=== PATIENT | female | born 1965 | race Caucasian/White ===

== ENCOUNTER 2024-08-10 09:31 | Emergency (ER) | payer MEDICAID, SELFPAY ==
[2024-08-10 09:44] VITALS: BP 145/96; BP 155/105; PULSE 99; RESP 19; TEMP 37; O2SAT 97; BMI 25.7
--- NOTE | 2024-08-10 09:52 | EKG_ITS ---
[facility] Test Date: 2024-08-10 Pat Name: BETSY HERNANDEZ Department: Room: - Gender: Female [employer]: : 1965 Requested By: Sanjana White Order Number: [id number] Reading MD: Sanjana White Measurements Intervals [place] Rate: 100 P: 29 CO: 120 QRS: 30 QRSD: 96 T: 36 QT: 335 QTc: 433 Interpretive Statements SINUS TACHYCARDIA POSSIBLE LEFT ATRIAL ENLARGEMENT [-0.1mV P-WAVE IN V1/V2] NONSPECIFIC ST & T-WAVE ABNORMALITY ABNORMAL RHYTHM ECG No previous ECG available for comparison /[id number].pdf
--- NOTE | 2024-08-10 09:52 | XR_ITS ---
Examination: PA lateral chest 2 views Technique: Upright PA lateral chest 2 views Date and time: August 10, 2024, 1003 hrs. Indications: Shortness of breath chest pain beginning 2 days ago. Findings: Normal heart size. Lungs are clear. Moderate osteopenia. Impression: No active disease.
--- NOTE | 2024-08-10 09:52 | PD.EDRME ---
Rapid Medical Screening Exam E Arrival date/time: 08/10/24 09:31 This is a 59-year-old female that comes into the emergency room with complaints of worst headache she has ever had for the past 5 days. Patient also has complaints of chest pressure and shortness of breath. Patient states she feels dizzy and weak. Patient states she never goes to the emergency room and does not see a primary provider. Patient does not take any medications regularly. Patient denies alcohol and drug use. Patient appears very anxious in triage. Patient reports that she has had some lower abdominal pain on the left side on and off but denies urinary symptoms. Patient denies nausea vomiting diarrhea. I have greeted and performed a focused initial assessment of this patient. Initial appropriate labs ordered at this time. A comprehensive ED assessment and evaluation of the patient and analysis of all test and completion of medical decision making process will be conducted by additional ED provider. Chief Complaint: Headache Time Seen by Provider: 08/10/24 09:39 Vital signs: Vital Signs Temperature 98.6 F 08/10/24 09:44 Pulse Rate 99 08/10/24 09:44 Respiratory Rate 19 08/10/24 09:44 Blood Pressure 145/96 H 08/10/24 09:44 Pulse Oximetry (%) 97 08/10/24 09:44 Oxygen Delivery Method Room Air 08/10/24 09:44
--- NOTE | 2024-08-10 09:53 | XR_ITS ---
Examination: CT brain head without contrast. 2-D sagittal coronal reconstructions Date and time of exam:August 10, 2024, 10:10 AM Indications: Headaches 4 days CTDI: vol (mGy):47.9 DLP: (mGycm):1003 Technique: Multiple CT axial sections of the brain have been obtained, 5 mm slice thickness. Contrast has not been administered. 2-D sagittal, coronal reconstructions have been obtained Low dose protocols were performed. One or more of the following dose reduction techniques were used; automated exposure control, adjustment of the mA and/or KV according to patient size, use of iterative reconstruction technique. Findings: No significant ventricular enlargement. Intra-axial or extra-axial hemorrhage density is not seen. No mass effect or midline shift Basal cisterns are not remarkable. Fourth ventricle is midline. Cranial vault intact. Impression: Negative for acute hemorrhage, mass effect or midline shift Advise clinical correlation follow-up accordingly
[2024-08-10 10:25] LABS: Basophils # (Auto) 0.1 Thou/mm3 (0.0-0.2); Basophils % (Auto) 1 % (0-2.5); Eosinophils % (Auto) 0 % (0-10); Hematocrit 38.4 % (36.0-46.0); Hemoglobin 13.7 g/dL (12.0-16.0); Immature Granulocytes % (Auto) 0 % (0-0); Immature Granulocytes Auto 0.03 Thou/mm3 (0.00-0.00); Lymphocytes # (Auto) 1.6 Thou/mm3 (1.0-4.8); Lymphocytes % (Auto) 14 % (10-50); Mean Corpuscular HGB Conc 35.7 g/dl (31.0-37.0); Mean Corpuscular Hemoglobin 31.6 pg (25.0-35.0); Mean Corpuscular Volume 89 fL (80-100); Monocytes # (Auto) 1.1 Thou/mm3 (0.0-0.8); Monocytes % (Auto) 10 % (0-12); Neutrophils # (Auto) 8.3 Thou/mm3 (1.8-7.7); Neutrophils % (Auto) 75 % (37-80); Nucleated Red Blood Cell % 0 /100 WBC (0); Platelet Count 247 Thou/mm3 (140-440); RDW Standard Deviation 43.1 fL (36.4-46.3); Red Blood Count 4.34 Miln/mm3 (4.00-5.20)
[2024-08-10 10:44] LABS: B-Type Natriuretic Peptide 61 pg/mL (0-100)
[2024-08-10 10:46] LABS: Alanine Aminotransferase 41 U/L (10-49); Albumin, Serum 4.4 gm/dL (3.5-5.0); Albumin/Globulin Ratio 1.6 (1.2-2.2); Alkaline Phosphatase 127 U/L (46-116); Anion Gap 10 (7-16); Aspartate Amino Transferase 27 U/L (0-34); BUN/Creatinine Ratio 10 Ratio (12-20); Bilirubin,Total 1.8 mg/dL (0.3-1.2); Blood Urea Nitrogen 10 mg/dL (9-23); Calcium 8.6 mg/dL (8.3-10.6); Calcium (Corrected) 8.6 mg/dL (8.5-10.1); Carbon Dioxide 25.5 mMol/L (20.0-31.0); Chloride 100 mMol/L (98-107); Estimated Creatinine Clearance 64.1 mL/min (>60); Globulin 2.8 gm/dL (2.3-3.5); Glucose 118 mg/dL (74-106); Osmolality,Calculated 270 (275-295); Potassium 3.2 mMol/L (3.4-5.1); Sodium 135 mMol/L (136-145); Total Protein 7.2 gm/dL (5.7-8.2); Troponin I < 0.002 ng/mL (0.0-0.045); eGFR > 60 See Note
--- NOTE | 2024-08-10 12:44 | PD.EDHA ---
ED Headache RME/HPI General Chief Complaint: Headache Stated Complaint: SHARP PAINS TO HEAD , CX PAIN/PRESSURE Time Seen by Provider: 08/10/24 09:39 Arrival date/time: 08/10/24 09:31 RME / HPI RME / HPI Narrative: 59-year-old female that comes into the emergency room with complaints of worst headache she has ever had for the past 5 days. Patient also has complaints of chest pressure and shortness of breath. Patient states she feels dizzy and weak. Patient states she never goes to the emergency room and does not see a primary provider. Patient does not take any medications regularly. Patient denies alcohol and drug use. Patient appears very anxious in triage. Patient reports that she has had some lower abdominal pain on the left side on and off but denies urinary symptoms. Patient denies nausea vomiting diarrhea. Denies any head trauma or fall. No medication was taken prior to ER visit. Patient is ambulatory. Related Data Previous Rx's ?Medication ?Instructions ?Recorded rizatriptan 10 mg disintegrating 10 mg PO Q2H PRN migraine headache 08/10/24 tablet (Maxalt-INFECTION PREVENTION COORDINATOR) #20 tabs Allergies Allergy/AdvReac Type Severity Reaction Status Date / Time No Known Allergies Allergy Verified 08/10/24 09:35 Review of Systems Review of Systems Narrative Review of Systems: Review of system reviewed and within normal limits except mentioned in HPI ED Exam Narrative Physical exam: VITAL SIGNS: Reviewed. GENERAL APPEARANCE: Alert and interactive, follows commands, no acute distress, HEAD AND FACE: Non-traumatic. ENT: PERRL, pink conjunctivitis, eyelid no trauma, Mucous membrane moist. NECK: Supple, nontender, no nuchal rigidity. CHEST: No tenderness, no crepitus, no paradoxical movement, no retractions. LUNGS: Clear, well ventilated, symmetric, no rales, no wheezing, no ronchi, no stridor, good breath sounds bilaterally. HEART: Regular rate, regular rhythm, no murmur, no gallops. ABDOMEN: Soft, positive bowel sounds, nondistended, no guarding, nontender, no rebound, no masses, RECTAL: Deferred. GENITAL: Deferred. NEUROLOGICAL: Gross motor function intact sensory function intact, Appropriate for age. MUSCULOSKELETAL: low back nontender, full range of motion. EXTREMITIES: Nontender, full range of motion. SKIN: Color pink, dry, no rash, no lacerations, no abrasions, no contusions. LYMPHATICS: Deferred. Course Quality Measures none Orders Category Date Time Status EKG (ED ONLY) *Do not use* NOW Care 08/10/24 09:[address] head/brain wo con Stat Exams 08/10/24 09:53 Completed EKG (ED Only) Stat Exams 08/10/24 09:52 Draft XR chest 2V Stat Exams 08/10/24 09:52 Completed BNP [B-Type Natriuretic Peptide] Stat Lab 08/10/24 10:18 Completed CBC Stat Lab 08/10/24 10:16 Completed Comprehensive Metabolic Panel Stat Lab 08/10/24 10:16 Completed Drug Screen,Urine Stat Lab 08/10/24 09:53 Ordered Troponin I Stat Lab 08/10/24 10:16 Completed Urinalysis, C/S if Indicated Stat Lab 08/10/24 09:54 Ordered DiphenhydrAMINE [Benadryl] Med 08/10/24 12:43 Discontinued 50 mg PO X1 ONE Ketorolac Inj [Toradol Inj] Med 08/10/24 12:43 Discontinued 30 mg IM X1 ONE Metoclopramide [Reglan] Med 08/10/24 12:43 Discontinued 10 mg PO X1 ONE Potassium Chloride [K-Dur] Med 08/10/24 13:12 Discontinued 40 meq PO X1 ONE Vital Signs Vital signs: Vital Signs Temperature 98.6 F 08/10/24 09:44 Pulse Rate 99 08/10/24 09:44 Respiratory Rate 19 08/10/24 09:44 Blood Pressure 145/96 H 08/10/24 09:44 Pulse Oximetry (%) 97 08/10/24 09:44 Oxygen Delivery Method Room Air 08/10/24 09:44 Headache MDM Narrative MDM Narrative:: 59-year-old female that comes into the emergency room with complaints of worst headache she has ever had for the past 5 days. Patient also has complaints of chest pressure and shortness of breath. Patient states she feels dizzy and weak. Patient states she never goes to the emergency room and does not see a primary provider. Patient does not take any medications regularly. Patient denies alcohol and drug use. Patient appears very anxious in triage. Patient reports that she has had some lower abdominal pain on the left side on and off but denies urinary symptoms. Patient denies nausea vomiting diarrhea. Denies any head trauma or fall. No medication was taken prior to ER visit. Patient is ambulatory Patient's workup today all came back normal including CT scan of the head except for potassium 3.2. Patient was given Toradol, Benadryl and Reglan with complete resolution of headache. I witnessed her walking without any difficulty. Patient data External records reviewed:: None Clinical information provided by:: patient Social determinants that could affect healthcare access:: none Patient has the following chronic illnesses:: None How is presenting disease/condition affected by chronic disease/condition?: no chronic disease Evaluation data The following diagnostics were reviewed and interpreted by me:: radiology exam(s) Lab and/or radiology exams considered but not ordered:: None Interpretation Summary: See results in MDM Medications / Prescriptions Medications or Prescriptions considered but not ordered:: None Medication administrations:: Medication Administration History Discontinued Medications Diphenhydramine HCl (Diphenhydramine 25 Mg Capsule) 50 mg PO X1 ONE Stop: 08/10/24 12:44 Last Admin: 08/10/24 13:40 Dose: 50 mg Documented By: Ketorolac Tromethamine (Ketorolac Inj 60 Mg/2 Ml Vial) 30 mg IM X1 ONE Stop: 08/10/24 12:44 Last Admin: 08/10/24 13:43 Dose: 30 mg Documented By: Metoclopramide HCl (Metoclopramide 5 Mg Tablet) 10 mg PO X1 ONE Stop: 08/10/24 12:44 Last Admin: 08/10/24 13:39 Dose: 10 mg Documented By: Potassium Chloride (Potassium Chloride 20 Meq Tabcr) 40 meq PO X1 ONE Stop: 08/10/24 13:13 Last Admin: 08/10/24 13:40 Dose: 40 meq Documented By: Potassium replacement, Reglan Toradol and Benadryl Consultations Consultation(s) initiated? (list below): No Diagnosis Differential diagnosis headache: migraine, tension headache and headache Most likely diagnosis given after review of the tests above:: Migraine headache Admission Indicated Admission indicated?: not indicated Admission Request Was there a request for admission?: No Disposition Plan Disposition Plan: Discharge Discharge Attestation Discharge Attestation: The patient and all family members were given an opportunity to ask questions and understood the discharge instructions. Discharge instructions specifically effects, indications for sooner follow up or return to the emergency department, and the expected course of current diagnosis. Patient condition: Stable Discharge Plan Plan Patient Disposition: HOME (Self Care) Discharge Disposition comment: Stable Prescriptions/Referrals Prescriptions/Med Rec: New rizatriptan [Maxalt-INFECTION PREVENTION COORDINATOR] 10 mg tablet,disintegrating 10 mg PO Q2H PRN (Reason: migraine headache) Qty: 20 0RF Rx Instructions: do not exceed 3 doses per 24 hrs Referrals: No Primary/Family,Physician [Primary Care Provider] - In 1 week Problem List Clinical Impression: Headache Patient/Caregiver Discharge Instructions Discharge Activity: activity as tolerated Education Materials: Self-Care for Headaches Additional Instructions: Thank you for the opportunity for serving you today. You are stable for discharged . You are advised to: Follow-up with your PCP in 1 to 2 days Return to ED for worsening of symptoms Increase oral fluids Take medication as prescribed Print Language: Senegalese Stand Alone Forms: Lacey Award Info., Patient Portal Info Letter
[2024-08-10] MEDS: METOCLOPRAMIDE 5 MG TABLET 10 MG PO (13:39)
[2024-08-10] MEDS: POTASSIUM CHLORIDE 20 mEq TABCR 40 MEQ PO (13:40)
[2024-08-10] MEDS: DiphenhydrAMINE 25 MG CAPSULE 50 MG PO (13:40)
[2024-08-10] MEDS: KETOROLAC INJ 60 MG/2 ML VIAL 30 MG IM (13:43)
== END 2024-08-10 15:35 | disposition home or self-care (01) ==
PROVIDERS: Nurse Practitioner Family; Emergency Provider Emergency Medicine
DX: R51.9 Headache, unspecified (principal)
CPT/HCPCS: 36415; 70450; 71046; 80053; 80307; 81001; 83880; 84484; 85025; 87400; 87811; 93005; 96372; 99284; J1885; A9270